=== PATIENT | male | born 1955 | race Two or more races ===

== ENCOUNTER 2023-02-17 00:40 | Inpatient (IN) | payer OTHER ==
[2023-02-17] VITALS (8 sets, daily range): BP systolic 111; BP diastolic 76; PULSE 68–119; RESP 15–26; TEMP 98.5; O2SAT 93–100
[~2023-02-17] VITALS: Ht 172.7 cm; Wt 82.0 kg
[2023-02-17] MEDS ORDERED: cefTRIAXone 1GM/50ML D5W 50 ML IV ONE (01:00)
[2023-02-17] MEDS ORDERED: AZITHROMYCIN 500MG/ 250ML 250 ML IV ONE (01:00)
[2023-02-17 01:25] LABS: Basophils # (auto) 0 10 ^3/uL (0-0.2); Basophils % (auto) 0.3 % (0.0-2.0); Eosinophils # (auto) 0.1 10 ^3/uL (0-0.8); Eosinophils % (auto) 0.6 % (0.0-7.0); Hematocrit 41.1 % (41.0-53.0); Hemoglobin 13.9 g/dL (13.5-17.5); Lymphocytes # (auto) 0.6 10 ^3/uL (0.4-5.4); Lymphocytes % (auto) 5.2 % (10.0-50.0); Mean Corpuscular Hemoglobin 30.6 pg (28.0-32.0); Mean Corpuscular Hgb Conc. 33.9 g/dL (32.0-36.0); Mean Corpuscular Volume 90.3 fL (80.0-100.0); Monocytes # (auto) 0.2 10 ^3/uL (0-1.3); Monocytes % (auto) 1.9 % (0.0-12.0); Red Blood Cells 4.55 10^6/uL (4.5-5.90); White Blood Cell 10.8 10^3/uL (4.4-10.8)
[2023-02-17 01:43] LABS: Alanine Aminotransferase 22 U/L (7-40); Albumin 4.1 g/dL (3.2-4.8); Alkaline Phosphatase 71 U/L (46-116); Anion Gap 5 (5-15); Aspartate Aminotransferase 9 U/L (13-40); Bilirubin, Total 0.6 mg/dL (0.2-1.0); Blood Urea Nitrogen 22 mg/dL (9-23); Calcium 8.7 mg/dL (8.7-10.4); Carbon Dioxide 29 mmol/L (20-30); Chloride 104 mmol/L (98-107); Glucose 199 mg/dL (74-106); Potassium 4.3 mmol/L (3.5-5.1); Sodium 138 mmol/L (136-145); Total Protein 6.6 g/dL (5.7-8.2)
[2023-02-17] MEDS ORDERED: ACETAMINOPHEN 325 MG TAB PO ONE (01:45)
[2023-02-17] MEDS ORDERED: SODIUM CHLORIDE 0.9% 1,000 ML IV ONE (01:45)
[2023-02-17 02:24] LABS: COVID19 ANTIGEN SOFIA FIA NEGATIVE (NEGATIVE)
[2023-02-17 05:03] LABS: Urine Bacteria NONE SEEN /hpf (None Seen); Urine Blood Negative /uL (Negative); Urine Clarity Clear (Clear); Urine Color Colorless (Yellow); Urine Protein, UAD TRACE (Negative); Urine Specific Gravity 1.014 (1.001-1.035); Urine Urobilinogen Normal (Negative); Urine WBC 2 /hpf (0 - 3); Urine pH 5.5 (5.0-8.0)
[2023-02-17 05:18] LABS: Rapid Influenza A Negative (Negative); Rapid Influenza B Negative (Negative)
[2023-02-17] MEDS ORDERED: MORPHINE SULFATE INJ 2 MG/ml SYRG IV PRN (06:00)
[2023-02-17] MEDS ORDERED: ONDANSETRON HCL 4 MG/2 ML VIAL IV PRN (06:00)
[2023-02-17] MEDS ORDERED: NITROGLYCERIN 0.4 MG SL TAB SL PRN (06:00)
[2023-02-17] MEDS ORDERED: ALBUTEROL MEDNEB 2.5 mg/3ml NEB ONE ×2 (06:27→18:05)
[2023-02-17] MEDS: SODIUM CHLORIDE 0.9% 1,000 ML IV SCH ×2 (06:29→19:49)
[2023-02-17] MEDS: ACETAMINOPHEN 325 MG TAB PO PRN ×2 (06:34→18:25)
[2023-02-17] MEDS: ALBUTEROL SULF 2.5 MG/0.5ML(0.5%) NEB SOLN NEB PRN ×2 (06:53→18:45)
[2023-02-17] MEDS: ENOXAPARIN SOD 40 MG/0.4 ML SYRINGE SC SCH (10:34)
[2023-02-17] MEDS ORDERED: IBUPROFEN 400 MG TAB PO PRN (11:30)
[2023-02-17] MEDS ORDERED: AZITHROMYCIN 250 MG TAB PO ONE (12:15)
[2023-02-18] VITALS (9 sets, daily range): BP systolic 114–144; BP diastolic 57–81; PULSE 61–91; RESP 16–21; TEMP 98–99.4; O2SAT 94–99
[2023-02-18] MEDS: cefTRIAXone 1GM/50ML D5W 50 ML IV SCH (02:29)
[2023-02-18] MEDS: ACETAMINOPHEN 325 MG TAB PO PRN ×3 (03:04→22:38)
[2023-02-18 05:23] LABS: Basophils # (auto) 0 10 ^3/uL (0-0.2); Basophils % (auto) 0.4 % (0.0-2.0); Eosinophils # (auto) 0 10 ^3/uL (0-0.8); Eosinophils % (auto) 0.4 % (0.0-7.0); Hematocrit 38.9 % (41.0-53.0); Lymphocytes # (auto) 0.8 10 ^3/uL (0.4-5.4); Lymphocytes % (auto) 11.8 % (10.0-50.0); Mean Corpuscular Hemoglobin 30.3 pg (28.0-32.0); Mean Corpuscular Hgb Conc. 33.5 g/dL (32.0-36.0); Mean Corpuscular Volume 90.4 fL (80.0-100.0); Monocytes # (auto) 0.5 10 ^3/uL (0-1.3); Monocytes % (auto) 7.5 % (0.0-12.0); Neutrophils # (auto) 5.2 10 ^3/uL (1.6-8.6); Neutrophils % (auto) 79.9 % (37.0-80.0); Nucleated Red Blood Cells % 0.1 %; Red Cell Distribution Width 14.1 % (11.8-14.3); White Blood Cell 6.5 10^3/uL (4.4-10.8)
[2023-02-18 05:39] LABS: Chloride 105 mmol/L (98-107); Potassium 3.9 mmol/L (3.5-5.1); Sodium 137 mmol/L (136-145)
[2023-02-18 05:40] LABS: Anion Gap 6 (5-15); Calcium 7.9 mg/dL (8.7-10.4); Carbon Dioxide 26 mmol/L (20-30)
[2023-02-18 05:45] LABS: BUN/Creatinine Ratio 10.8 (10.0-20.0); Blood Urea Nitrogen 11 mg/dL (9-23); Glucose 188 mg/dL (74-106)
[2023-02-18] MEDS: SODIUM CHLORIDE 0.9% 1,000 ML IV SCH (08:40)
[2023-02-18] MEDS: AZITHROMYCIN 250 MG TAB PO SCH (10:32)
[2023-02-18] MEDS: ENOXAPARIN SOD 40 MG/0.4 ML SYRINGE SC SCH (10:33)
[2023-02-18] MEDS: traMADol HCL 50 MG TAB PO PRN (17:07)
[2023-02-19] VITALS (11 sets, daily range): BP systolic 101–127; BP diastolic 44–85; PULSE 62–71; RESP 14–20; TEMP 97.6–98.2; O2SAT 93–99
[2023-02-19] MEDS: cefTRIAXone 1GM/50ML D5W 50 ML IV SCH (02:19)
[2023-02-19] MEDS: traMADol HCL 50 MG TAB PO PRN ×2 (05:16→12:15)
[2023-02-19] MEDS: AZITHROMYCIN 250 MG TAB PO SCH (09:18)
[2023-02-19] MEDS: ENOXAPARIN SOD 40 MG/0.4 ML SYRINGE SC SCH (09:19)
[2023-02-19] MEDS ORDERED: ERGOCALCIFEROL 50,000 UNIT(1.25MG) CAP PO SCH (17:30)
[2023-02-19] MEDS: ACETAMINOPHEN 325 MG TAB PO PRN (20:24)
[2023-02-20] MEDS: cefTRIAXone 1GM/50ML D5W 50 ML IV SCH (02:32)
[2023-02-20] MEDS: ACETAMINOPHEN 325 MG TAB PO PRN (02:44)
[2023-02-20 05:00] VITALS: BP 110/66; PULSE 70; RESP 18; TEMP 98.1; O2SAT 98
[2023-02-20 06:29] LABS: Chloride 100 mmol/L (98-107); Potassium 3.7 mmol/L (3.5-5.1); Sodium 135 mmol/L (136-145)
[2023-02-20 06:30] LABS: Anion Gap 8 (5-15); Calcium 8.7 mg/dL (8.7-10.4); Carbon Dioxide 27 mmol/L (20-30)
[2023-02-20 06:35] LABS: BUN/Creatinine Ratio 15.2 (10.0-20.0); Blood Urea Nitrogen 14 mg/dL (9-23); Glucose 107 mg/dL (74-106)
[2023-02-20 06:36] LABS: Magnesium 1.9 mg/dL (1.6-2.6)
[2023-02-20 07:01] LABS: Basophils # (auto) 0 10 ^3/uL (0-0.2); Basophils % (auto) 0.7 % (0.0-2.0); Eosinophils # (auto) 0.1 10 ^3/uL (0-0.8); Eosinophils % (auto) 2.2 % (0.0-7.0); Hematocrit 41.2 % (41.0-53.0); Lymphocytes # (auto) 1.2 10 ^3/uL (0.4-5.4); Lymphocytes % (auto) 27.7 % (10.0-50.0); Mean Corpuscular Hemoglobin 30.4 pg (28.0-32.0); Mean Corpuscular Volume 89.5 fL (80.0-100.0); Monocytes # (auto) 0.5 10 ^3/uL (0-1.3); Monocytes % (auto) 10.6 % (0.0-12.0); Neutrophils # (auto) 2.5 10 ^3/uL (1.6-8.6); Neutrophils % (auto) 58.8 % (37.0-80.0); Nucleated Red Blood Cells % 0.3 %; Red Blood Cells 4.61 10^6/uL (4.5-5.90); White Blood Cell 4.3 10^3/uL (4.4-10.8)
[2023-02-20 08:15] VITALS: O2SAT 99
[2023-02-20 08:20] VITALS: PULSE 94
[2023-02-20 09:00] VITALS: BP 113/73; PULSE 59; RESP 16; TEMP 97.8; O2SAT 97
[2023-02-20 10:00] VITALS: O2SAT 99
[2023-02-20] MEDS: ENOXAPARIN SOD 40 MG/0.4 ML SYRINGE SC SCH (10:00)
[2023-02-20] MEDS: AZITHROMYCIN 250 MG TAB PO SCH (10:43)
[2023-02-20] MEDS ORDERED: AZIT-43 PO (12:08)
[2023-02-20] MEDS ORDERED: ERGO1CAP23 PO (12:08)
[2023-02-20 13:00] VITALS: BP 123/69; PULSE 76; RESP 18; TEMP 98.3; O2SAT 96
== END 2023-02-20 15:45 | disposition home or self-care (01) | DRG 871 ==
LOC: EDBD 00:40 → ER 00:40 → TELE 05:54 → TELE-CENTR 21:03
PROVIDERS: ADMIT Nurse Practitioner; ATTEND Internal Medicine
DX: A41.89 Other specified sepsis (principal); J96.01 Acute respiratory failure with hypoxia; U07.1 COVID-19; E11.9 Type 2 diabetes mellitus without complications; Z20.822 Contact with and (suspected) exposure to COVID-19; I95.9 Hypotension, unspecified; Z88.0 Allergy status to penicillin; Z86.16 Personal history of COVID-19; Z28.310 Unvaccinated for COVID-19
CPT/HCPCS: 36415; 71045; 80048; 80053; 81001; 82306; 82962; 83036; 83605; 83735; 84443; 84484; 85025; 85379; 87040; 87426; 87804; 93005; 94640; 99291; G0378; J0696